=== PATIENT | female | born 1960 | race Caucasian/White ===

== ENCOUNTER 2018-06-03 12:54 | Inpatient (IN) ==
--- NOTE | 2018-06-03 13:08 | Emergency Department Note ---
Disposition Clinical Impression: Femoral neck fracture, Fall Disposition: Admitted As Inpatient Condition: Fair General Adult HPI - General Chief complaint: ED Fall Stated complaint: Fall/ leg pain Time Seen by Provider: 06/03/18 13:00 - Related Data Home Medications Medication Instructions Recorded Confirmed Haloperidol [Haldol] 2 mg PO QAM 06/03/18 06/03/18 Haloperidol [Haldol] 4 mg PO HS 06/03/18 06/03/18 Levothyroxine [Synthroid] 150 mcg PO DAILY 06/03/18 06/03/18 Loratadine [Allergy Relief] 10 mg PO DAILY 06/03/18 06/03/18 OLANZapine [Zyprexa] 20 mg PO HS 06/03/18 06/03/18 Spironolactone [Aldactone] 12.5 mg PO DAILY 06/03/18 06/03/18 Venlafaxine HCl [Venlafaxine HCl 150 mg PO DAILY 06/03/18 06/03/18 ER] Vortioxetine Hydrobromide 15 mg PO QAM 06/03/18 06/03/18 [Trintellix] clonazePAM [Klonopin] 1.5 mg PO HS 06/03/18 06/03/18 Allergies Allergy/AdvReac Type Severity Reaction Status Date / Time No Known Allergies Allergy Verified 06/03/18 14:12 Course Vital Signs Temperature 98.2 F 06/03/18 13:06 Pulse Rate 66 06/03/18 13:06 Respiratory Rate 14 06/03/18 13:06 Blood Pressure 116/76 06/03/18 13:06 O2 Sat by Pulse Oximetry 96 06/03/18 13:06 Temperature 98.5 F 06/03/18 15:40 Pulse Rate 74 06/03/18 15:40 Respiratory Rate 16 06/03/18 15:40 Blood Pressure 133/72 06/03/18 15:40 O2 Sat by Pulse Oximetry 94 06/03/18 15:40 Oxygen Delivery Oxygen Delivery Room Air Medical Decision Making - Lab Data Result diagrams: 06/03/18 14:06 06/03/18 14:06 Lab Results 06/03/18 06/03/18 06/03/18 Range/Units 13:13 14:06 14:06 WBC 5.8 (4.3-11.1) K/mcL RBC 4.06 (3.82-4.97) M/mcL Hgb 12.1 (11.5-15.4) g/dL Hct 37.1 (35.3-44.9) % MCV 91.4 (83.0-100.0) fL MCH 29.8 (28.0-33.3) pg MCHC 32.6 (31.6-35.5) g/dL RDW 15.4 H (11.5-14.5) % Plt Count 139 L (140-400) K/mcL MPV 10.0 (9.4-12.4) fL Immature Gran % 0.5 (0-4) % Seg Neutrophils % 75.7 % Lymphocytes % 14.8 % Monocytes % 7.9 % Eosinophils % 0.9 % Basophils % 0.2 % Neutrophils # 4.4 (1.6-8.9) K/mcL Lymphocytes # 0.9 (0.6-4.6) K/mcL Monocytes # 0.5 (0.0-1.3) K/mcL Eosinophils # 0.1 (0.0-0.6) K/mcL Basophils # 0.0 (0.0-0.2) K/mcL PT (9.4-12.1) Seconds INR Sodium 138 (136-145) mEq/L Potassium 3.9 (3.5-5.1) mEq/L Chloride 104 (98-107) mEq/L Carbon Dioxide 31 H (23-29) mEq/L BUN 10 (6-20) mg/dL Creatinine 0.61 (0.60-1.20) mg/dL Est GFR ( Amer) > 60 (> 60) Est GFR (Non-Af Amer) > 60 (> 60) BUN/Creatinine Ratio 16 (6-26) Glucose 102 (70-105) mg/dL POC Glucose 87 (70-99) mg/dL Calculated Osmolality 285 (280-300) Calcium 9.0 (8.6-10.3) mg/dL 06/03/18 Range/Units 14:06 WBC (4.3-11.1) K/mcL RBC (3.82-4.97) M/mcL Hgb (11.5-15.4) g/dL Hct (35.3-44.9) % MCV (83.0-100.0) fL MCH (28.0-33.3) pg MCHC (31.6-35.5) g/dL RDW (11.5-14.5) % Plt Count (140-400) K/mcL MPV (9.4-12.4) fL Immature Gran % (0-4) % Seg Neutrophils % % Lymphocytes % % Monocytes % % Eosinophils % % Basophils % % Neutrophils # (1.6-8.9) K/mcL Lymphocytes # (0.6-4.6) K/mcL Monocytes # (0.0-1.3) K/mcL Eosinophils # (0.0-0.6) K/mcL Basophils # (0.0-0.2) K/mcL PT 12.1 (9.4-12.1) Seconds INR 1.1 Sodium (136-145) mEq/L Potassium (3.5-5.1) mEq/L Chloride (98-107) mEq/L Carbon Dioxide (23-29) mEq/L BUN (6-20) mg/dL Creatinine (0.60-1.20) mg/dL Est GFR ( Amer) (> 60) Est GFR (Non-Af Amer) (> 60) BUN/Creatinine Ratio (6-26) Glucose (70-105) mg/dL POC Glucose (70-99) mg/dL Calculated Osmolality (280-300) Calcium (8.6-10.3) mg/dL Attestation Statement - Attestation Attestation: I examined this patient and my medical decision-making was reviewed with the Resident Physician. I agree with the documented findings, disposition and treatment plan as described except to the extent set forth below. [id number] time provided Patient arrives by EMS from the [facility] where she was visiting her . She sustained a fall. She recalls all events. She denies head or neck injury. She complains of right proximal femur pain. She denies focal weakness. On exam she has somewhat of a flat affect she is able to move all 4 extremities with equal strength
[2018-06-03 14:30] LABS: Basophils % 0.2 %; Eosinophils # 0.1 K/mcL (0.0-0.6); Eosinophils % 0.9 %; Hematocrit 37.1 % (35.3-44.9); Hemoglobin 12.1 g/dL (11.5-15.4); Immature Granulocytes % 0.5 % (0-4); Lymphocytes # 0.9 K/mcL (0.6-4.6); Lymphocytes % 14.8 %; Mean Corpuscular HGB Conc 32.6 g/dL (31.6-35.5); Mean Corpuscular Hemoglobin 29.8 pg (28.0-33.3); Mean Corpuscular Volume 91.4 fL (83.0-100.0); Monocytes # 0.5 K/mcL (0.0-1.3); Monocytes % 7.9 %; Neutrophils # 4.4 K/mcL (1.6-8.9); Platelet Count 139 K/mcL (140-400); Red Blood Count 4.06 M/mcL (3.82-4.97); Red Cell Distribution Width 15.4 % (11.5-14.5); Segmented Neutrophils % 75.7 %
[2018-06-03 14:38] LABS: INR 1.1; Prothrombin Time 12.1 Seconds (9.4-12.1)
[2018-06-03 14:41] LABS: BUN/Creatinine Ratio 16 (6-26); Blood Urea Nitrogen 10 mg/dL (6-20); Carbon Dioxide 31 mEq/L (23-29); Chloride 104 mEq/L (98-107); Glucose 102 mg/dL (70-105); Osmolality,Calculated 285 (280-300); Potassium 3.9 mEq/L (3.5-5.1); Sodium 138 mEq/L (136-145); eGFR For Non-African Americans > 60 (> 60)
--- NOTE | 2018-06-03 14:43 | Emergency Department Note ---
Disposition Clinical Impression: Femoral neck fracture Qualifiers: Encounter type: initial encounter Fracture type: closed Laterality: right Qualified Code(s): S72.001A - Fracture of unspecified part of neck of right femur, initial encounter for closed fracture Fall Qualifiers: Encounter type: initial encounter Qualified Code(s): W19.XXXA - Unspecified fall, initial encounter Disposition: Admitted As Inpatient Condition: Fair General Adult HPI - General Chief complaint: ED Fall Stated complaint: Fall/ leg pain Time Seen by Provider: 06/03/18 13:00 Source: patient Nursing Notes Reviewed: Yes Vital Signs Reviewed: Yes - History of Present Illness HPI Narrative: 57-year-old female presents to emergency department with concern for fall. Patient is complaining of right hip pain and right knee pain after a fall. On any blood thinning medications. Patient is at her current baseline mental status per her . They are concerned that patient is on multiple medications which have brought that her affect. Patient reports that the fall was mechanical. Pain Scale: 8 - Related Data Home Medications Medication Instructions Recorded Confirmed Haloperidol [Haldol] 2 mg PO QAM 06/03/18 06/03/18 Haloperidol [Haldol] 4 mg PO HS 06/03/18 06/03/18 Levothyroxine [Synthroid] 150 mcg PO DAILY 06/03/18 06/03/18 Loratadine [Allergy Relief] 10 mg PO DAILY 06/03/18 06/03/18 OLANZapine [Zyprexa] 20 mg PO HS 06/03/18 06/03/18 Spironolactone [Aldactone] 12.5 mg PO DAILY 06/03/18 06/03/18 Venlafaxine HCl [Venlafaxine HCl 150 mg PO DAILY 06/03/18 06/03/18 ER] Vortioxetine Hydrobromide 15 mg PO QAM 06/03/18 06/03/18 [Trintellix] clonazePAM [Klonopin] 1.5 mg PO HS 06/03/18 06/03/18 Allergies Allergy/AdvReac Type Severity Reaction Status Date / Time No Known Allergies Allergy Verified 06/03/18 14:12 All systems ED: reviewed and negative except as stated. Review of Systems: As Per HPI Constitutional: Denies: fever Cardiovascular: Denies: chest pain Respiratory: Denies: dyspnea Gastrointestinal: Denies: abdominal pain Genitourinary: Reports: frequency. Denies: urgency, dysuria Musculoskeletal: Reports: other (Right hip pain, right knee pain). Denies: back pain Neurological: Denies: headache Past Medical History - Past Medical History Medical history: Reports: no medical history Psychiatric history: Reports: anxiety, depression - Social History Smoking Status: Former smoker Alcohol use: Reports: none Drug use: Reports: none Physical Exam - General General appearance: alert - Head Head exam: normocephalic - Eye Eye exam: Present: EOMI - ENT ENT exam: mucous membranes moist - Neck Neck exam: Present: trachea midline - Chest Chest inspection: Present: symmetric chest wall rise - Respiratory Respiratory exam: Present: normal lung sounds bilaterally. Absent: respiratory distress, accessory muscle use - Cardiovascular Cardiovascular exam: Present: regular rate, normal rhythm, normal heart sounds - Abdominal Exam Abdominal exam: Present: soft, Non-Tender. Absent: distention, guarding, rebound, rigidity - Extremities Exam Extremities exam: Present: normal capillary refill, other (Upper and lower extremity is neurovascular intact) - Expanded Lower Extremity Exam Hip/Pelvis exam: Present: tenderness (Right hip upon palpation) Knee exam: Present: tenderness (The right knee upon palpation) Course Vital Signs Temperature 98.2 F 06/03/18 13:06 Pulse Rate 66 06/03/18 13:06 Respiratory Rate 14 06/03/18 13:06 Blood Pressure 116/76 06/03/18 13:06 O2 Sat by Pulse Oximetry 96 06/03/18 13:06 Temperature 98.5 F 06/03/18 15:40 Pulse Rate 74 06/03/18 15:40 Respiratory Rate 16 06/03/18 15:40 Blood Pressure 133/72 06/03/18 15:40 O2 Sat by Pulse Oximetry 94 06/03/18 15:40 Oxygen Delivery Oxygen Delivery Room Air Medical Decision Making - [facility] Narrative Medical decision making narrative: 57-year-old female presents to emergency department after a mechanical fall. Patient complaining of right hip pain as well as right knee pain. Patient not in any acute distress, and hemodynamically stable throughout her stay here in the emergency department. X-ray of the right hip reveals a right femoral neck fracture that is mildly displaced. Right lower extremity neurovascularly intact. I did speak with an cafeteria assistant of Dr. Christianson'gold as he was in surgery. He did agree to follow patient on the floor for management. Hospitalist, Dr. Lugo agree to accept the patient for admission. I discussed admission with family at bedside. They agree to plan. Patient not in acute distress at time of a dmission to the hospital. Labs that were obtained for Hospital purposes within normal limits. Femur X-Ray 06/03/18 13:06 IMPRESSION: 1. Acute right femoral neck fracture. D/ / Ricky Monsivais MD / Ricky Monsivais MD Interpreting Provider: Ricky Monsivais MD Pelvis X-Ray 06/03/18 13:06 IMPRESSION: 1. Acute right femoral neck fracture. D/ / Ricky Monsivais MD / Ricky Monsivais MD Interpreting Provider: Ricky Monsivais MD Chest X-Ray 06/03/18 14:07 IMPRESSION: Small pleural effusions and moderate ground-glass opacities centrally. Pattern may represent pulmonary edema. A viral infection may also be considered clinically. D/ / Ricky Gutierrez MD / Ricky Gutierrez MD Interpreting Provider: Ricky Gutierrez MD Hip CT 06/03/18 16:00 IMPRESSION: 1. Limited CT Molina protocol of the bilateral hips and knees for preoperative planning. 2. Redemonstration of transcervical right femoral neck fracture with fracture apex angulated anteriorly. 3. Mild osteoarthritis of the bilateral hips. 4. Bilateral total knee arthroplasties. D/ / Jorge Garcia MD / Jorge Garcia MD Interpreting Provider: Jorge Garcia MD - Lab Data Result diagrams: 06/03/18 14:06 06/03/18 14:06 Lab Results 06/03/18 06/03/18 06/03/18 Range/Units 13:13 14:06 14:06 WBC 5.8 (4.3-11.1) K/mcL RBC 4.06 (3.82-4.97) M/mcL Hgb 12.1 (11.5-15.4) g/dL Hct 37.1 (35.3-44.9) % MCV 91.4 (83.0-100.0) fL MCH 29.8 (28.0-33.3) pg MCHC 32.6 (31.6-35.5) g/dL RDW 15.4 H (11.5-14.5) % Plt Count 139 L (140-400) K/mcL MPV 10.0 (9.4-12.4) fL Immature Gran % 0.5 (0-4) % Seg Neutrophils % 75.7 % Lymphocytes % 14.8 % Monocytes % 7.9 % Eosinophils % 0.9 % Basophils % 0.2 % Neutrophils # 4.4 (1.6-8.9) K/mcL Lymphocytes # 0.9 (0.6-4.6) K/mcL Monocytes # 0.5 (0.0-1.3) K/mcL Eosinophils # 0.1 (0.0-0.6) K/mcL Basophils # 0.0 (0.0-0.2) K/mcL PT (9.4-12.1) Seconds INR Sodium 138 (136-145) mEq/L Potassium 3.9 (3.5-5.1) mEq/L Chloride 104 (98-107) mEq/L Carbon Dioxide 31 H (23-29) mEq/L BUN 10 (6-20) mg/dL Creatinine 0.61 (0.60-1.20) mg/dL Est GFR ( Amer) > 60 (> 60) Est GFR (Non-Af Amer) > 60 (> 60) BUN/Creatinine Ratio 16 (6-26) Glucose 102 (70-105) mg/dL POC Glucose 87 (70-99) mg/dL Calculated Osmolality 285 (280-300) Calcium 9.0 (8.6-10.3) mg/dL 06/03/18 Range/Units 14:06 WBC (4.3-11.1) K/mcL RBC (3.82-4.97) M/mcL Hgb (11.5-15.4) g/dL Hct (35.3-44.9) % MCV (83.0-100.0) fL MCH (28.0-33.3) pg MCHC (31.6-35.5) g/dL RDW (11.5-14.5) % Plt Count (140-400) K/mcL MPV (9.4-12.4) fL Immature Gran % (0-4) % Seg Neutrophils % % Lymphocytes % % Monocytes % % Eosinophils % % Basophils % % Neutrophils # (1.6-8.9) K/mcL Lymphocytes # (0.6-4.6) K/mcL Monocytes # (0.0-1.3) K/mcL Eosinophils # (0.0-0.6) K/mcL Basophils # (0.0-0.2) K/mcL PT 12.1 (9.4-12.1) Seconds INR 1.1 Sodium (136-145) mEq/L Potassium (3.5-5.1) mEq/L Chloride (98-107) mEq/L Carbon Dioxide (23-29) mEq/L BUN (6-20) mg/dL Creatinine (0.60-1.20) mg/dL Est GFR ( Amer) (> 60) Est GFR (Non-Af Amer) (> 60) BUN/Creatinine Ratio (6-26) Glucose (70-105) mg/dL POC Glucose (70-99) mg/dL Calculated Osmolality (280-300) Calcium (8.6-10.3) mg/dL
--- NOTE | 2018-06-03 16:03 | Orthopedic Consult Note ---
Date of Encounter: 06/04/18 Time of Encounter: 16:02 Assessment and Plan (1) Femoral neck fracture Current Visit: Yes Status: Acute Plan: Right Hip THR 06/[address]Cohen Atif [address]e [address] tonight NPO after midnight. Foot pumps Pain control CHG bath tonight and in AM Consent reviewed and signed by patient. Qualifiers: Encounter type: initial encounter Fracture type: closed Laterality: right Qualified Code(s): S72.001A - Fracture of unspecified part of neck of right femur, initial encounter for closed fracture (2) Fall Current Visit: Yes Status: Acute Qualifiers: Encounter type: initial encounter Qualified Code(s): W19.XXXA - Unspecified fall, initial encounter History of Present Illness Chief complaint: fall HPI: Ms. Acosta is a 57 year old female past medical history of bipolar depression, hypothyroidism, obesity status post gastric bypass one year ago came in after a fall with right leg pain. Patient lives at home independently, she was at the [place] with her , was sitting in the chair, and when she stood up and walk a few steps, she fell. Denies any dizziness or palpitation blackout or lightheadedness before the fall. Mentions that she just tripped and fall. Did not have any history of falls in past. Per was at bedside her blood pressure was low at that time in 80s which later on in the ambulance was higher. She did not lose any consciousness or hit her head or neck. She complains of pain in her right thigh. Denies any other pain. Denies any chest pain, shortness of breath, cough, fever or chills. Denies any urinary or bowel complaints. Patient was found to have impacted right femur Fracture in ER. She was admitted for further management. On interview complains about 8/10 intensity pain. Denies any nausea or vomiting. Denies any tingling numbness in her foot. RLE: Sw[place], no eccymosis or erythema. No obvious abrasion Calf tenderness - none Leg appears ER and shortened NV intact distally. Plan: Right Hip THR 06/[address]Cohen [address]if [address]e [address] tonight NPO after midnight. Foot pumps Pain control CHG bath tonight and in AM Consent reviewed and signed by patient. Past Med Surg Social Fam HX - Past Medical History Medical history: no medical history Psychiatric history: anxiety, depression - Past Surgical History Additional surgical history: Gastro at beginning of year - Social History Smoking Status: Former smoker Alcohol use: none Drug use: none - Family History Father Hx Family Cancer: Yes (LUNG) Mother Hx Family Cardiac Disorders: Yes (HTN) Medications and Allergies Haloperidol [Haldol] 2 mg PO QAM 06/03/18 [History] Haloperidol [Haldol] 4 mg PO HS 06/03/18 [History] Levothyroxine [Synthroid] 150 mcg PO DAILY 06/03/18 [History] Loratadine [Allergy Relief] 10 mg PO DAILY 06/03/18 [History] OLANZapine [Zyprexa] 20 mg PO HS 06/03/18 [History] Spironolactone [Aldactone] 12.5 mg PO DAILY 06/03/18 [History] Venlafaxine HCl [Venlafaxine HCl ER] 150 mg PO DAILY 06/03/18 [History] Vortioxetine Hydrobromide [Trintellix] 15 mg PO QAM 06/03/18 [History] clonazePAM [Klonopin] 1.5 mg PO HS 06/03/18 [History] Allergy/AdvReac Type Severity Reaction Status Date / Time No Known Allergies Allergy Verified 06/03/18 14:12 All Systems Reviewed: The remainder of the systems were reviewed and are negative Physical Exam - Constitutional Vitals: Temp Pulse Resp BP Pulse Ox 98.5 F 74 16 133/72 94 06/03/18 15:40 06/03/18 15:40 06/03/18 15:40 06/03/18 15:40 06/03/18 15:40 General appearance IM: A&O X 3, no acute distress, answers questions appropriately Results - Labs Result Diagrams: 06/04/18 06:07 06/04/18 06:07 Labs: Abnormal lab results RDW 15.4 % (11.5-14.5) H 06/03/18 14:06 Plt Count 139 K/mcL (140-400) L 06/03/18 14:06 Carbon Dioxide 31 mEq/L (23-29) H 06/03/18 14:06 H & H 06/03/18 Range/Units 14:06 Hgb 12.1 (11.5-15.4) g/dL Hct 37.1 (35.3-44.9) % All other labs normal. Consult Discharge Plan - Plan Referrals: Paty Haskins [Primary Care Provider] -
[2018-06-03] MEDS ORDERED: Naloxone 0.4 MG/ML INJ IVP PRN (16:14)
--- NOTE | 2018-06-03 16:23 | Internal Med History&Physical ---
Date of Encounter: 06/03/18 Time of Encounter: 16:23 Internal Medicine - H&P: HPI Chief complaint: fall Admitted From: Home Plans for Post Hospital Care: Home History of present illness: Ms. Acosta is a 57 year old female with past medical history of bipolar depression, hypothyroidism, obesity status post gastric bypass one year ago came in after a fall with right leg pain. Patient was sitting in the chair for about a 1 hour after which she stood up and walk a few steps and fell. Denies any dizziness or palpitation blackout or lightheadedness before the fall. Mentions that she just tripped and fall. Did not have any history of falls in past. Per was at bedside her blood pressure was low at that time in 80s which later on in the ambulance was higher. She did not lose any consciousness or hit her head or neck. She complains of pain in her right thigh. Denies any other pain. Denies any chest pain, shortness of breath, cough, fever or chills. Denies any urinary or bowel complaints. Patient was found to have impacted right femur Fracture in ER. She was admitted for further management. On interview complains about 8/10 intensity pain. Denies any nausea or vomiting. Denies any tingling numbness in her foot. Past Med Surg Social Fam HX - Past Medical History Attestation: Yes The following information was validated with the patient. Medical history: no medical history Psychiatric history: anxiety, depression - Past Surgical History Additional surgical history: Gastric bypass about a year ago. Bilateral knee arthroplasty. Spinal stimulator for ankle pain - Social History Smoking Status: Former smoker Alcohol use: none Drug use: none - Family History Father Living Status: Age at : 46 Hx Family Respiratory Disorders: Yes (lung cancer) Mother Hx Family Cardiac Disorders: Yes (HTN) Internal Medicine - H&P: Meds Haloperidol [Haldol] 2 mg PO QAM 06/03/18 [History] Haloperidol [Haldol] 4 mg PO HS 06/03/18 [History] Levothyroxine [Synthroid] 150 mcg PO DAILY 06/03/18 [History] Loratadine [Allergy Relief] 10 mg PO DAILY 06/03/18 [History] OLANZapine [Zyprexa] 20 mg PO HS 06/03/18 [History] Spironolactone [Aldactone] 12.5 mg PO DAILY 06/03/18 [History] Venlafaxine HCl [Venlafaxine HCl ER] 150 mg PO DAILY 06/03/18 [History] Vortioxetine Hydrobromide [Trintellix] 15 mg PO QAM 06/03/18 [History] clonazePAM [Klonopin] 1.5 mg PO HS 06/03/18 [History] Allergy/AdvReac Type Severity Reaction Status Date / Time No Known Allergies Allergy Verified 06/03/18 14:12 All Systems PM: A 10-system review of systems was performed and is negative for pertinent findings except as documented above in the HPI. - Constitutional Vitals: Temp Pulse Resp BP Pulse Ox 98.5 F 74 16 133/72 94 06/03/18 15:40 06/03/18 15:40 06/03/18 15:40 06/03/18 15:40 06/03/18 15:40 Exam: Constitutional: Vitals as noted. Conversant. No Apparent Distress. Flat affect Eyes : Sclera white, conjunctiva clear, no lid lag, PEARLA. ENT : Grossly normal hearing. Oropharyngeal exam unremarkable. Moist mucus membranes. No JVD, no cervical lymphadenopathy. no thyromegaly or mass. Respiratory : Clear to auscultation bilaterally. No accessory muscle use, rales, rhonchi or wheezes Cardiovascular : RRR, +S1, +S2. no murmur, gallop, rubs. No chest wall tenderness GI/Abdominal : Soft, Non-tender, Non-distended, normal bowel sounds, soft, no peritoneal signs. no orgenomegaly or mass appreciated. no hernia. Musculoskeletal: no deformity noted. no edema or cyanosis. warm extremities, pulses palpable and symmetrical in UE/LE. no calf tenderness. Rt thigh with petchei on front, pain with Rt leg movement. No obvious deformity noted. Neurological: AO X3, CN II-XII grossly intact, grossly normal motor and sensory exam. Skin: As above Pych: Flat affect. Internal Med - H&P Results - Labs CBC & Chem 7: 06/03/18 14:06 06/03/18 14:06 Labs: Short CBC 06/03/18 Range/Units 14:06 WBC 5.8 (4.3-11.1) K/mcL Hgb 12.1 (11.5-15.4) g/dL Hct 37.1 (35.3-44.9) % Plt Count 139 L (140-400) K/mcL Neutrophils # 4.4 (1.6-8.9) K/mcL BMP 06/03/18 14:06 Sodium 138 Potassium 3.9 Chloride 104 Carbon Dioxide 31 H BUN 10 Creatinine 0.61 Glucose 102 Calcium 9.0 - EKG Data -: EKG Interpreted by Myself EKG shows normal: sinus rhythm, axis Rate: normal - EKG Data Interpretation IM: normal EKG - Impressions ITS Impressions Femur X-Ray 06/03/18 13:06 IMPRESSION: 1. Acute right femoral neck fracture. D/ / Ricky Monsivais MD / Ricky Monsivais MD Interpreting Provider: Ricky Monsivais MD Pelvis X-Ray 06/03/18 13:06 IMPRESSION: 1. Acute right femoral neck fracture. D/ / Ricky Monsivais MD / Ricky Monsivais MD Interpreting Provider: Ricky Monsivais MD Chest X-Ray 06/03/18 14:07 IMPRESSION: Small pleural effusions and moderate ground-glass opacities centrally. Pattern may represent pulmonary edema. A viral infection may also be considered clinically. D/ / Ricky Gutierrez MD / Ricky Gutierrez MD Interpreting Provider: Ricky Gutierrez MD - Assessment and plan (1) Femoral neck fracture Current Visit: Yes Status: Acute Assessment and plan: - Right femur Fracture after mechanical fall - We will control pain with Percocet 5 every 6 when necessary. We will use IV Dilaudid when nothing by mouth. - Nothing by mouth after midnight for surgical intervention - Ortho consulted - We will obtain vitamin D and TSH levels given patient had fracture with non- significant trauma. Qualifiers: Encounter type: initial encounter Fracture type: closed Laterality: right Qualified Code(s): S72.001A - Fracture of unspecified part of neck of right femur, initial encounter for closed fracture (2) Bipolar disorder Current Visit: Yes Status: Chronic Assessment and plan: - Continue home medication Qualifiers: Qualified Code(s): F31.9 - Bipolar disorder, unspecified (3) Hypothyroidism Current Visit: Yes Status: Acute Assessment and plan: - Continue home levothyroxine - Obtain TSH. Qualifiers: Qualified Code(s): E03.9 - Hypothyroidism, unspecified (4) Fall Current Visit: Yes Status: Acute Assessment and plan: - Appears to have mechanical fall - However unclear patient otherwise and spironolactone. - No cardiac or pulmonary history. - We will keep patient on telemetry for arrhythmia events Qualifiers: Encounter type: initial encounter Qualified Code(s): W19.XXXA - Unspecified fall, initial encounter (5) Preoperative cardiovascular examination Current Visit: Yes Status: Acute Assessment and plan: - Patient with our RCRI score of 0-1 with low risk for intermediate risk surgery. - Patient without chest pain. EKG without any signs of ischemia. Normal sinus rhythm with 1 PVC. - Chest x-ray with groundglass opacities. However clinically the patient does not have any fluid overload. Denies any cough or shortness of breath or h/o PND - We will obtain echocardiogram. However it should not prevent patient to go to surgery tomorrow. - Time Spent With Patient Total time spent is greater than 50% in coordination of care (as documented) at patient's floor/unit and/or counseling patient:
[2018-06-03] MEDS ORDERED: Ringers Solution, Lactated 1,000 ML ONE (17:12)
[2018-06-03] MEDS: *HR* OxyCODONE/APAP 5/325 TABLET PO PRN (17:16)
[2018-06-03] MEDS: Ringers Solution, Lactated 1,000 ML IVC SCH (18:12)
[2018-06-03] MEDS ORDERED: OLANZapine 10 MG TAB.RAPDIS PO SCH (21:00)
[2018-06-03] MEDS ORDERED: clonazePAM 1 MG TABLET PO SCH (21:00)
[2018-06-04] MEDS: *HR* Heparin 5,000 UNIT/ML VIAL SQ SCH ×3 (01:03→23:36)
[2018-06-04] MEDS: *HR* OxyCODONE/APAP 5/325 TABLET PO PRN (01:04)
--- NOTE | 2018-06-04 06:02 | Electrocardiograph Report ---
[place] [facility] Test Date: 2018-06-03 Pat Name: Leticia Acosta Department: EXAM5 Room: [facility] Gender: F Daub [employer]er: : [id number] Requested By: Isaias Pham Order Number: [id number] Reading MD: Gomez Cisneros Measurements Intervals Mentcle Rate: 61 P: 33 [place]: 154 QRS: 40 QRSD: 86 T: 54 QT: 425 QTc: 429 Interpretive Statements Sinus rhythm Electronically Signed On 06-04-2018 6:01:07 EST by Gomez Cisneros
[2018-06-04 06:27] LABS: Basophils % 0.2 %; Eosinophils % 0.5 %; Hematocrit 39.4 % (35.3-44.9); Hemoglobin 12.7 g/dL (11.5-15.4); Immature Granulocytes % 0.5 % (0-4); Mean Corpuscular HGB Conc 32.2 g/dL (31.6-35.5); Mean Corpuscular Volume 92.9 fL (83.0-100.0); Monocytes # 0.5 K/mcL (0.0-1.3); Monocytes % 8.1 %; Neutrophils # 4.8 K/mcL (1.6-8.9); Platelet Count 127 K/mcL (140-400); Red Blood Count 4.24 M/mcL (3.82-4.97); Red Cell Distribution Width 15.8 % (11.5-14.5); Segmented Neutrophils % 74.7 %
[2018-06-04 06:44] LABS: Alanine Aminotransferase 58 Units/L (7-52); Albumin 3.2 g/dL (3.5-5.7); Albumin/Globulin Ratio 0.9 (1.1-2.2); Alkaline Phosphatase 176 Units/L (34-104); Aspartate Amino Transferase 51 Units/L (13-39); BUN/Creatinine Ratio 16 (6-26); Bilirubin,Total 0.8 mg/dL (0.3-1.0); Blood Urea Nitrogen 10 mg/dL (6-20); Calcium 9.1 mg/dL (8.6-10.3); Carbon Dioxide 29 mEq/L (23-29); Chloride 106 mEq/L (98-107); Globulin 3.5 g/dL (2.4-3.5); Glucose 117 mg/dL (70-105); Osmolality,Calculated 290 (280-300); Potassium 4.1 mEq/L (3.5-5.1); Sodium 140 mEq/L (136-145); Total Protein 6.7 g/dL (6.4-8.9); eGFR For Non-African Americans > 60 (> 60)
[2018-06-04 06:57] LABS: Thyroid Stimulating Hormone 7.354 mcIU/mL (0.340-5.600)
[2018-06-04] MEDS: Ringers Solution, Lactated 1,000 ML IVC SCH (07:30)
[2018-06-04] MEDS ORDERED: Venlafaxine XR (24 HR) 150 MG CAP.ER.24H PO SCH (09:00)
[2018-06-04] MEDS ORDERED: VORTIOXETINE HYDROBROMIDE 15 MG PO SCH (09:00)
[2018-06-04] MEDS ORDERED: Loratadine 10 MG TABLET PO SCH (09:00)
--- NOTE | 2018-06-04 09:01 | Internal Med Progress Note ---
Hospitalist Progress Note - Encounter Date of Encounter: 06/04/18 Time of Encounter: 09:01 - Subjective Interval History: Patient seen and examined this morning. No acute overnight events. Denies new complaints. Right leg pain control. Denies any chest pain, abdominal pain, fevers, chills, nausea, vomiting, diarrhea. NPO. - Exam Vitals: Temp Pulse Resp BP Pulse Ox 98.4 F 86 16 114/76 95 06/04/18 06:34 06/04/18 06:34 06/04/18 06:34 06/04/18 06:34 06/04/18 06:34 Exam: Constitutional: Vitals as noted. Conversant. No Apparent Distress. Respiratory : Clear to auscultation bilaterally. No accessory muscle use, rales, rhonchi or wheezes Cardiovascular : RRR, +S1, +S2. no murmur, gallop, rubs. No chest wall tender ness GI/Abdominal : Soft, Non-tender, Non-distended, normal bowel sounds, soft, no peritoneal signs. no orgenomegaly or mass appreciated. no hernia. Musculoskeletal: no deformity noted. no edema or cyanosis. warm extremities, pulses palpable and symmetrical in UE/LE. no calf tenderness. pain with Rt leg movement. Neurological: AO X3, CN II-XII grossly intact, grossly normal motor and sensory exam. Skin: As above Pych: Flat affect. - Assessment and Plan (1) Femoral neck fracture Current Visit: Yes Status: Acute (2) Bipolar disorder Current Visit: Yes Status: Chronic (3) Hypothyroidism Current Visit: Yes Status: Acute (4) Fall Current Visit: Yes Status: Acute (5) Preoperative cardiovascular examination Current Visit: Yes Status: Acute - Summary of Assessment and Plan Summary of Assessment and Plan: Femoral neck fracture - Right femur Fracture after mechanical fall - continue current pain regimen - NPO for surgical intervention later today - Ortho following - TSH elevated. Follow-up vitamin D levels Elevated transaminase and alkaline phosphatase - Minimally elevated transaminase. - Elevated alkaline phosphatase likely from bone source - Without abdominal pain. - No further intervention needed - Monitor for now Thrombocytopenia - Minimally decreased - Monitor for now Bipolar disorder - Continue home medication Hypothyroidism - Elevated TSH which may suggest patient is not well controlled for hypoth yroidism. - Continue home levothyroxine - Will need adjustment of her oxygen dosage as outpatient Fall - Appears to have mechanical fall - No cardiac or pulmonary history. - No telemetry events - Follow-up TTE Preoperative cardiovascular examination - RCRI of 0(1 if CXR suggest CHF). Low risk for intermediate risk surgery. - Patient without chest pain. EKG without any signs of ischemia. Normal sinus rhythm with 1 PVC. - Chest x-ray with groundglass opacities. However clinically the patient does not have any fluid overload. Denies any cough or shortness of breath or h/o PND - Follow-up TTE - Time Spent with Patient Total time spent is greater than 50% in coordination of care (as documented) at patient's floor/unit and/or counseling patient: Internal Medicine: Result - Labs CBC & Chem 7: 06/04/18 06:07 06/04/18 06:07 Labs: Short CBC 06/03/18 06/04/18 Range/Units 14:06 06:07 WBC 5.8 6.4 (4.3-11.1) K/mcL Hgb 12.1 12.7 (11.5-15.4) g/dL Hct 37.1 39.4 (35.3-44.9) % Plt Count 139 L 127 L (140-400) K/mcL Neutrophils # 4.4 4.8 (1.6-8.9) K/mcL BMP 06/03/18 06/04/18 14:06 06:07 Sodium 138 140 Potassium 3.9 4.1 Chloride 104 106 Carbon Dioxide 31 H 29 BUN 10 10 Creatinine 0.61 0.61 Glucose 102 117 H Calcium 9.0 9.1 Liver Function 06/04/18 Range/Units 06:07 Total Bilirubin 0.8 (0.3-1.0) mg/dL AST 51 H (13-39) Units/L ALT 58 H (7-52) Units/L Alkaline Phosphatase 176 H (34-104) Units/L Albumin 3.2 L (3.5-5.7) g/dL - ABG Interpretation ABG results: PT/INR, D-dimer PT 12.1 Seconds (9.4-12.1) 06/03/18 14:06 - Impressions Impressions Femur X-Ray 06/03/18 13:06 IMPRESSION: 1. Acute right femoral neck fracture. D/ / Ricky Monsivais MD / Ricky Monsivais MD Interpreting Provider: Ricky Monsivais MD Pelvis X-Ray 06/03/18 13:06 IMPRESSION: 1. Acute right femoral neck fracture. D/ / Ricky Monsivais MD / Ricky Monsivais MD Interpreting Provider: Ricky Monsivais MD Chest X-Ray 06/03/18 14:07 IMPRESSION: Small pleural effusions and moderate ground-glass opacities centrally. Pattern may represent pulmonary edema. A viral infection may also be considered clinically. D/ / Ricky Gutierrez MD / Ricky Gutierrez MD Interpreting Provider: Ricky Gutierrez MD Hip CT 06/03/18 16:00 IMPRESSION: 1. Limited CT Molina protocol of the bilateral hips and knees for preoperative planning. 2. Redemonstration of transcervical right femoral neck fracture with fracture apex angulated anteriorly. 3. Mild osteoarthritis of the bilateral hips. 4. Bilateral total knee arthroplasties. D/ / Jorge Garcia MD / Jorge Garcia MD Interpreting Provider: Jorge Garcia MD Consult Discharge Plan - Plan Referrals: Paty Haskins [Primary Care Provider] - (1) Femoral neck fracture Qualifiers: Encounter type: initial encounter Fracture type: closed Laterality: right Qualified Code(s): S72.001A - Fracture of unspecified part of neck of right femur, initial encounter for closed fracture (2) Bipolar disorder Qualifiers: Qualified Code(s): F31.9 - Bipolar disorder, unspecified (3) Hypothyroidism Qualifiers: Qualified Code(s): E03.9 - Hypothyroidism, unspecified (4) Fall Qualifiers: Encounter type: initial encounter Qualified Code(s): W19.XXXA - Unspecified fall, initial encounter
--- NOTE | 2018-06-04 09:34 | Orthopedics Progress Note ---
Date of Encounter: 06/04/18 Time of Encounter: 09:33 Subjective Interval history: Patient with a displaced right femoral neck fracture. Patient is 57 years old. Patient recently status post press-fit total knee on the right side. Based on patient's age diagnosis recommendations for robotic-assisted right total hip replacement. We reviewed the risks and benefits as well as recovery. All questions were answered. The patient agreed to this treatment plan and acknowledged an understanding of the treatment plan as described. Objective Vital signs: Vital Signs Temp Pulse Resp BP Pulse Ox 06/04/18 06:34 98.4 F 86 16 114/76 95 06/04/18 04:56 98.4 F 88 15 111/74 93 06/03/18 23:31 98.6 F 80 15 131/82 94 06/03/18 21:02 98.3 F 85 15 113/72 93 06/03/18 15:40 98.5 F 74 16 133/72 94 06/03/18 15:23 93 06/03/18 14:35 98.6 F 64 17 104/66 97 06/03/18 13:06 98.2 F 66 14 116/76 96 Intake and Output 06/03/18 06/04/18 06/04/18 23:59 07:59 15:59 Intake Total 200 / 200 1000 / 1000 Output Total 1000 / 1000 Balance 200 / 200 0 / 0 Intake: IV Fluids 1000 / 1000 Lactated Ringers 1,000 ML @ 75 1000 / 1000 mls/hr IVC .[id number] Rx#: [id number] Oral 200 / 200 Output: Catheter 1000 / 1000 Female External Catheter 0 / 0 Urethral (Rahman) 1000 / 1000 Other: Meal Dinner Percent of Meal Consumed 100% Weight 74.1 kg Patient Weight 06/04/18 23:59 Weight 74.1 kg - Labs CBC & BMP: 06/04/18 06:07 06/04/18 06:07 Labs: Abnormal lab results RDW 15.8 % (11.5-14.5) H 06/04/18 06:07 Plt Count 127 K/mcL (140-400) L 06/04/18 06:07 Glucose 117 mg/dL (70-105) H 06/04/18 06:07 AST 51 Units/L (13-39) H 06/04/18 06:07 ALT 58 Units/L (7-52) H 06/04/18 06:07 Alkaline Phosphatase 176 Units/L (34-104) H 06/04/18 06:07 Albumin 3.2 g/dL (3.5-5.7) L 06/04/18 06:07 Albumin/Globulin Ratio 0.9 (1.1-2.2) L 06/04/18 06:07 TSH 7.354 mcIU/mL (0.340-5.600) H 06/04/18 06:07 Consult Discharge Plan - Plan Referrals: Paty Haskins [Primary Care Provider] -
[2018-06-04] MEDS ORDERED: Perflutren Lipid Microsphere 1.3 ML in 0.9 % Sodium Chloride 8.7 ML IVP ONE (09:54)
[2018-06-04] MEDS ORDERED: Perflutren Lipid Microsphere 2 ML VIAL ONE (09:57)
--- NOTE | 2018-06-04 11:03 | Electrocardiograph Report ---
[address] [address] Test Date: 2018-06-03 Pat Name: Leticia Acosta Department: 114 Room: [facility] Gender: F [place] Counselor: [id number] : 1960 Requested By: Kaleb Molina Order Number: [id number] Reading MD: Nicki Hsu Measurements Intervals [place] Rate: 87 P: 40 UT: 151 QRS: 28 QRSD: 91 T: 33 QT: 360 QTc: 404 Interpretive Statements SINUS RHYTHM WITH MARKED SINUS ARRHYTHMIA NONSPECIFIC T-WAVE ABNORMALITY Electronically Signed On 06-04-2018 11:01:10 EST by Nicki Hsu
--- NOTE | 2018-06-04 13:39 | Anesthesia Evaluation PreOp ---
Date of Encounter: 06/04/18 Time of Encounter: 13:37 - Past History Planned Operation: Right robo total hip Cardiac History: Denies any Significant Hx Pulmonary History: Denies Any Significant HX HEALTH DATA ADMINISTRATOR History: Other (bipolar depression) Other Medical History: Thyroid (hypo), GERD, Other (right femur fracture, spinal stimulator for ankle pain) Anesthesia History: No Prior Anesthetic Complications, Past Anesthesia (bilateral total knee) : No Alcohol Use: none Drug use: none Medications and Allergies Haloperidol [Haldol] 2 mg PO QAM 06/03/18 [History] Haloperidol [Haldol] 4 mg PO HS 06/03/18 [History] Levothyroxine [Synthroid] 150 mcg PO DAILY 06/03/18 [History] Loratadine [Allergy Relief] 10 mg PO DAILY 06/03/18 [History] OLANZapine [Zyprexa] 20 mg PO HS 06/03/18 [History] Spironolactone [Aldactone] 12.5 mg PO DAILY 06/03/18 [History] Venlafaxine HCl [Venlafaxine HCl ER] 150 mg PO DAILY 06/03/18 [History] Vortioxetine Hydrobromide [Trintellix] 15 mg PO QAM 06/03/18 [History] clonazePAM [Klonopin] 1.5 mg PO HS 06/03/18 [History] Allergy/AdvReac Type Severity Reaction Status Date / Time No Known Allergies Allergy Verified 06/03/18 14:12 - Meds/Allergy Pre-op Review Medications Reviewed: Yes Allergies Reviewed: Yes Beta Blockers on Current Med List: No Anesthesia Results - Labs 06/04/18 06:07 06/04/18 06:07 - Imaging EKG: report reviewed (SINUS RHYTHM WITH MARKED SINUS ARRHYTHMIA NONSPECIFIC T- WAVE ABNORMALITY) Additional studies: 06/04/2018 Impressions: LVEF 60%. Normal LV chamber size, wall thickness and function. Mild left ventricular diastolic dysfunction. Normal right ventricular structure and function. No evidence of pulmonary hypertension. No significant valvular dysfunction. Anesthesia Exam Vital Signs/O2 Sat/Glucose, Most Recent Temp Pulse Resp BP Pulse Ox 98.2 F 89 16 132/80 95 06/04/18 11:37 06/04/18 11:37 06/04/18 11:37 06/04/18 11:37 06/04/18 11:37 Blood Glucose* 89 Weight: 74 kg NPO (# of Hours): > 8 hr - HEENT Pupil (Motor): Pupils equal Mallampati: II Teeth: Poor dentition - HEALTH DATA ADMINISTRATOR LOC: Oriented HEALTH DATA ADMINISTRATOR Motor: Normal RUE, Normal LUE, Normal RLE, Normal LLE, Normal Face HEALTH DATA ADMINISTRATOR Sensory: Normal: RUE, LUE, RLE, LLE, Face - Cardiac Rhythm: Regular Murmur: None - Pulmonary Breath Sounds: bilateral Clear Respiratory Effort: Symmetrical Anesthesia Assess/Plan ASA Score: 2 Level of consciousness: Cooperative, Oriented Anesthetic Plan: General, Regional Nerve Block Regional Nerve Block Plan: Fascial Iliacus Reason for No Neuroaxial/Regional Block: Other (patient with spinal cord sti mulator) Monitoring Plan: Standard Monitors Recovery Plan: PACU
[2018-06-04] MEDS ORDERED: *HR* FentaNYL (PF) 100 MCG/2 ML VIAL ONE (13:46)
[2018-06-04] MEDS ORDERED: *HR* Midazolam HCl 2 MG/2 ML VIAL ONE (13:46)
[2018-06-04] MEDS ORDERED: ROPIVACAINE HCL/PF 0.5% 30 ML VIAL ONE (13:46)
[2018-06-04] MEDS ORDERED: Acetaminophen IV 1,000 MG/100 ML INFUS..BTL ONE (13:51)
[2018-06-04] MEDS ORDERED: Lidocaine -MPF 2% 2 ML VIAL ONE (13:56)
[2018-06-04] MEDS ORDERED: *HR* Propofol 200 MG/20 ML VIAL IVP ONE (13:56)
[2018-06-04] MEDS ORDERED: Ondansetron 4 MG/2 ML VIAL ONE (13:58)
[2018-06-04] MEDS ORDERED: Dexamethasone 4 MG/ML VIAL ONE (13:58)
[2018-06-04] MEDS ORDERED: *HR* Succinylcholine 200 MG/10 ML VIAL IVP ONE (13:59)
[2018-06-04] MEDS ORDERED: *HR* Promethazine 25 MG/ML VIAL IVP PRN (14:02)
[2018-06-04] MEDS ORDERED: *HR* OxyCODONE Immed Rel 5 MG TABLET PO PRN ×2 (14:02→17:01)
[2018-06-04] MEDS ORDERED: *HR* Labetalol 20 MG/4 ML SYRINGE IVP PRN (14:02)
[2018-06-04] MEDS ORDERED: *HR* HYDROmorphone (PF) 1 MG/ML SYRINGE IVP PRN (14:02)
--- NOTE | 2018-06-04 14:12 | Anesthesia Procedures ---
Date of Encounter: 06/04/18 Time of Encounter: 14:03 Procedures: Anesthesia - Nerve Block Procedure Date: 06/04/18 Time: 14:03 Allergies/Adv Reactions: NKDA Surgical Procedure: R Robotic Total Hip Checklist: Correct Patient Identifier, Correct procedure, History checked Correct side: Right Blood Thinner: No Monitor Applied: EKG, BP, Pulse Oximetry Supplemental Oxygen via Nasal Cannula (L/min): 2 Sedation: Versed (mg): 2 Sedation: Fentanyl (mcg): 100 Indication: Post Op Analgesia Pre-op Neuro Deficits: No Block Type: Other (Fascia [place]) Catheter placed: No Sterile Technique: Yes Ultrasound used: Yes Anatomy identified: Yes Visual spread of Local: Yes Neuro Stimulation: No Blood on Needle Aspiration: No Smooth Injection of Local: Yes Pain with Injection of Local: No Prep: Chlorhexadine Needle: 21 x 100 mm Stimuplex Local: Ropivacaine (60mL of 0.25% Ropivacaine with 8mg Decadron ) Number of Attempts: 1 Complications: None/effective block Vitals: Vital Signs/O2 Sat/Glucose, Most Recent Temp Pulse Resp BP Pulse Ox 98.2 F 91 16 146/77 92 06/04/18 11:37 06/04/18 14:06 06/04/18 14:06 06/04/18 14:06 06/04/18 14:06 Blood Glucose* 89
[2018-06-04] MEDS ORDERED: Ethanol\\Acetic Acid\\Na Ace\\Ben 1,000 ML IRRIG.SOLN IR ONE (14:47)
[2018-06-04] MEDS ORDERED: *HR* PHENYLEPHRINE 1,000 MCG/10 ML SYRINGE IVP ONE (15:31)
[2018-06-04] MEDS ORDERED: *HR* Morphine 10 MG/ML VIAL ONE (15:42)
--- NOTE | 2018-06-04 16:06 | Orthopedic Operative Note ---
Date of procedure: 06/04/18 Pre-op diagnosis: Displaced right femoral neck fracture Post-op diagnosis: same Procedure: Procedure: Right Total Hip Replacment robotic-assisted Estimated blood loss: 200 cc Hardware: Metal and polyethylene replacement. Silva DM Cup: 52 cup Femoral size 7 stem Head: 4 head with Cynthia Procedural Notes: Displaced right femoral neck fracture Operative procedure: The patient was brought to the operating room and placed on the operating room table. After general anesthesia was administered the patient was placed in the lateral decubitus position with the operative leg up. All pressure points were padded appropriately and the head was stabilized in the neutral position. The operative extremity was prepped and draped in the sterile surgical fashion patient received IV antibiotic prior to skin incision. 3 Steinmann pins were placed in the iliac crest 3 cm proximal to the anterior superior iliac spine this was for the robotic-assisted sensor. This was done through a small 2 cm incision. A standard posterior approach is made to the operative hip, the incision was made through the skin and subcutaneous tissue hemostasis was obtained with Bovie cautery. Using careful sharp dissection the fascia was identified and incised exposing the external rotators. The greater trochanter was marked, and length was measured at this time utilizing robotic assistance. The external rotators were released off the greater trochanter and tagged with #2 FiberWire suture. The capsule was T'd open and the hip was brought into internal rotation. The femoral head was removed, the femoral neck cut was made at the appropriate level proximal to the lesser trochanter. An anterior capsulotomy was performed for the anterior retractor. Soft tissues removed from the acetabulum. The acetabulum reference point was confirmed. The acetabulum was then mapped with robotic assistance. Based on the preoperative plan the acetabulum was reamed in one step with a 51 reamer. The 52 acetabulum was impacted with robotic assistance and 38 degrees of abduction and 20 degrees of anteversion. The hip was brought back in to internal rotation and prepared with the press box custodian followed by the canal finder followed by the reaming process to a size 7/8 broaching process in 20 degrees anteversion. It was broached up to the appropriate size 7 Trial reduction revealed leg lengths close to normal. The femoral implant was impacted in place in 20 degrees of anteversion. Trial reduction found the hip to be stable with 4 head and Cynthia. The trials were removed and the real implants were impacted in place. The hip was reduced, patient had robotic confirmed leg length of 5 mm shorter than the contralateral side. The hip had excellent stability with forward flexion to 90 degrees adduction of 30 degrees and internal rotation of 60 degrees. The hip had no shuck. The hip sat with an antibacterial solution. It was irrigated out with 2 L of pulse irrigation. The Steinmann pins were removed. The deep tissue was irrigated and closed deep with #1 PDS suture superficially with 0 PDS suture and skin was closed with Dermabond and zip tie. The patient was placed in a sterile dressing and abduction pillow. The patient was extubated and transferred to the recovery room in stable condition. Anesthesia: GETA Surgeon: Emery Christianson Was there an assistant corporate controller present: No Estimated blood loss (cc): 200 Condition: stable Disposition: PACU
--- NOTE | 2018-06-04 16:40 | Anesthesia Evaluation Post Op ---
Date of Encounter: 06/04/18 Time of Encounter: 16:39 - Vital Signs Vital Signs: Vital Signs/O2 Sat, Most Current Temp Pulse Resp BP Pulse Ox 98.8 F 101 18 123/66 94 06/04/18 16:12 06/04/18 16:32 06/04/18 16:32 06/04/18 16:32 06/04/18 16:32 - Lungs Lungs: Clear Ascult./Percussion - Airway Airway: Non-obstructed - Cardiovascular Regular Rate - Mental Status Mental Status: Alert & Oriented, Answers Appropriately - Pain Pain Scale: 0 Pain Scale used: Numeric (1 - 10) - Nausea Vomiting Nausea Vomiting: Not Present - Hydration Hydration: Ice chips, Rahman catheter - Discharge PostOp Status: Transfer Patient to floor
[2018-06-04 16:41] LABS: Hematocrit 39.1 % (35.3-44.9); Hemoglobin 12.7 g/dL (11.5-15.4)
[2018-06-04] MEDS ORDERED: Naloxone 0.4 MG/ML INJ IVP PRN (17:01)
[2018-06-04] MEDS ORDERED: *HR* OxyCODONE/APAP 5/325 TABLET PO PRN (17:01)
[2018-06-04] MEDS ORDERED: Sennosides 8.6 MG TABLET PO PRN (17:01)
[2018-06-04] MEDS ORDERED: Temazepam 15 MG CAPSULE PO PRN (17:01)
[2018-06-04] MEDS ORDERED: MOM Conc 10 ML UD.LIQ PO PRN (17:01)
[2018-06-04] MEDS ORDERED: Ondansetron 4 MG/2 ML VIAL IVP PRN (17:01)
[2018-06-04] MEDS ORDERED: Ringers Solution, Lactated 1,000 ML IVC SCH ×2 (17:01)
[2018-06-04] MEDS: Ascorbic Acid 500 MG TABLET PO SCH (17:39)
[2018-06-04] MEDS: clonazePAM 1 MG TABLET PO SCH (21:23)
[2018-06-04] MEDS: OLANZapine 10 MG TAB.RAPDIS PO SCH (21:23)
[2018-06-05] MEDS ORDERED: 0.9 % Sodium Chloride 500 ML IVC ONE (01:07)
[2018-06-05 05:04] LABS: Hematocrit 39.1 % (35.3-44.9); Hemoglobin 12.4 g/dL (11.5-15.4)
[2018-06-05 05:27] LABS: BUN/Creatinine Ratio 16 (6-26); Blood Urea Nitrogen 9 mg/dL (6-20); Calcium 9.3 mg/dL (8.6-10.3); Carbon Dioxide 27 mEq/L (23-29); Chloride 107 mEq/L (98-107); Glucose 149 mg/dL (70-105); Osmolality,Calculated 287 (280-300); Potassium 4.8 mEq/L (3.5-5.1); Sodium 138 mEq/L (136-145); eGFR For Non-African Americans > 60 (> 60)
[2018-06-05] MEDS: Venlafaxine XR (24 HR) 150 MG CAP.ER.24H PO SCH (09:23)
[2018-06-05] MEDS: Multivit/Ca/Min/Fe/FA 1 TAB TABLET PO SCH (09:23)
[2018-06-05] MEDS: Loratadine 10 MG TABLET PO SCH (09:23)
[2018-06-05] MEDS: Ascorbic Acid 500 MG TABLET PO SCH ×2 (09:23→16:35)
[2018-06-05] MEDS: *HR* Heparin 5,000 UNIT/ML VIAL SQ SCH ×2 (09:24→16:35)
[2018-06-05] MEDS: Patient Taking Own Medication 1 EACH PO SCH (09:24)
--- NOTE | 2018-06-05 12:36 | Orthopedics Progress Note ---
Date of Encounter: 06/05/18 Time of Encounter: 12:36 Subjective Interval history: Doing well POD#1 s/p R CONNOR. Pain as expected. No N/T. No N/V. AFVSS GEN: NAD, AAOx3 LUE: Dress c/d/i DNVI to motor and sensory exam Calves nontender s/p R CONNOR PO pain control PT with posterior hip precautions D/c planning Objective Vital signs: Vital Signs Temp Pulse Resp BP Pulse Ox 06/05/18 11:00 97.7 F 76 16 101/68 95 06/05/18 06:27 78 115/68 06/05/18 04:02 75 104/67 06/05/18 03:35 97.5 F L 70 14 89/57 99 06/05/18 02:04 77 92/64 06/05/18 01:20 75 87/57 98 06/04/18 23:38 97.5 F L 75 14 95/59 94 06/04/18 21:34 97 06/04/18 20:00 98.0 F 86 14 106/64 97 06/04/18 18:58 98.2 F 86 16 103/67 95 06/04/18 18:03 98 F 94 16 94/63 06/04/18 17:37 98.2 F 100 18 108/72 94 06/04/18 16:51 98.1 F 101 16 116/71 94 06/04/18 16:42 98.9 F 99 18 120/59 94 06/04/18 16:32 101 18 123/66 94 06/04/18 16:22 105 20 125/73 97 06/04/18 16:12 98.8 F 101 22 131/79 94 06/04/18 14:31 89 16 141/75 94 06/04/18 14:06 91 16 146/77 92 06/04/18 13:57 85 16 143/76 97 Intake and Output 06/04/18 06/05/18 06/05/18 23:59 07:59 15:59 Intake Total 100 / 100 600 / 600 Output Total 1700 / 1700 600 / 600 950 / 950 Balance -1600 / -1600 0 / 0 -950 / -950 Intake: IV Fluids 100 / 100 500 / 500 0.9 % Sodium Chloride 500 ML @ 500 / 500 999 mls/hr IVC .Q31M ONE Rx#: [id number] Ancef 2,000 MG In 0.9 % Sodium 100 / 100 Chloride 100 ML @ 200 mls/hr IVPB Q8H [facility] Rx#:[id number] Oral 100 / 100 Output: Estimated Blood Loss 200 / 200 Catheter 1500 / 1500 600 / 600 950 / 950 Other: Weight 66.5 kg Blood Glucose* 143 Patient Weight 06/05/18 23:59 Weight 66.5 kg - Labs CBC & BMP: 06/05/18 04:54 06/05/18 04:54 Labs: Abnormal lab results RDW 15.8 % (11.5-14.5) H 06/04/18 06:07 Plt Count 127 K/mcL (140-400) L 06/04/18 06:07 Creatinine 0.57 mg/dL (0.60-1.20) L 06/05/18 04:54 Glucose 149 mg/dL (70-105) H 06/05/18 04:54 AST 51 Units/L (13-39) H 06/04/18 06:07 ALT 58 Units/L (7-52) H 06/04/18 06:07 Alkaline Phosphatase 176 Units/L (34-104) H 06/04/18 06:07 Albumin 3.2 g/dL (3.5-5.7) L 06/04/18 06:07 Albumin/Globulin Ratio 0.9 (1.1-2.2) L 06/04/18 06:07 TSH 7.354 mcIU/mL (0.340-5.600) H 06/04/18 06:07 Consult Discharge Plan - Plan Referrals: Paty Haskins [Primary Care Provider] -
--- NOTE | 2018-06-05 13:59 | Internal Med Progress Note ---
Hospitalist Progress Note - Encounter Date of Encounter: 06/05/18 Time of Encounter: 13:56 - Subjective Interval History: Patient seen and examined this morning. No acute overnight events. Right Total Hip Replacment robotic-assisted POD1 Has minimal pain. No chest pain, abdominal pain, fevers, chills, nausea, vomiting, diarrhea. Wants to go home. - Exam Vitals: Temp Pulse Resp BP Pulse Ox 97.7 F 76 16 101/68 95 06/05/18 11:00 06/05/18 11:00 06/05/18 11:00 06/05/18 11:06/05/18 11:00 Exam: Constitutional: Vitals as noted. Conversant. No Apparent Distress. Respiratory : Clear to auscultation bilaterally. No accessory muscle use, rales, rhonchi or wheezes Cardiovascular : RRR, +S1, +S2. no murmur, gallop, rubs. No chest wall tenderness GI/Abdominal : Soft, Non-tender, Non-distended, normal bowel sounds, soft, no peritoneal signs. no orgenomegaly or mass appreciated. no hernia. Musculoskeletal: no deformity noted. no edema or cyanosis. warm extremities, pulses palpable and symmetrical in UE/LE. no calf tenderness. Dressing clear. no bleeding noticed. Neurological: AO X3, CN II-XII grossly intact, grossly normal motor and sensory exam. Skin: As above Pych: Flat affect. - Assessment and Plan (1) Femoral neck fracture Current Visit: Yes Status: Acute (2) Bipolar disorder Current Visit: Yes Status: Chronic (3) Hypothyroidism Current Visit: Yes Status: Acute (4) Fall Current Visit: Yes Status: Acute (5) Preoperative cardiovascular examination Current Visit: Yes Status: Acute - Summary of Assessment and Plan Summary of Assessment and Plan: Femoral neck fracture - Right femur Fracture after mechanical fall - continue current pain regimen - s/p day 1 CONNOR - PT recommended outpatient therapy. However no one available at home to help during weekend. with heart problems and does not feel comfortable. Home health there till thursday even if setup. - Medically Ok to be discharged. - Plan for DC on thursday once outpatient help setup. c/w PT. Elevated transaminase and alkaline phosphatase - Minimally elevated transaminase. - Elevated alkaline phosphatase likely from bone source - Without abdominal pain. - No further intervention needed Bipolar disorder - Continue home medication Hypothyroidism - Elevated TSH which may suggest patient is not well controlled for hypothyroidism. - Continue home levothyroxine - Will need adjustment of her oxygen dosage as outpatient Fall - Appears to have mechanical fall - No cardiac or pulmonary history. - No telemetry events - TTE with EF of 60%. mild DD. NWM. - Time Spent with Patient Total time spent is greater than 50% in coordination of care (as documented) at patient's floor/unit and/or counseling patient: Internal Medicine: Result - Labs CBC & Chem 7: 06/05/18 04:54 06/05/18 04:54 Labs: Short CBC 06/04/18 06/05/18 Range/Units 16:27 04:54 Hgb 12.7 12.4 (11.5-15.4) g/dL Hct 39.1 39.1 (35.3-44.9) % BMP 06/05/18 04:54 Sodium 138 Potassium 4.8 Chloride 107 Carbon Dioxide 27 BUN 9 Creatinine 0.57 L Glucose 149 H Calcium 9.3 - ABG Interpretation ABG results: PT/INR, D-dimer PT 12.1 Seconds (9.4-12.1) 06/03/18 14:06 - Impressions Impressions Hip X-Ray 06/04/18 13:31 IMPRESSION: Interval placement of right hip prosthesis. D/ / Shu Holguin Cha, MD / Shu Holguin Cha, MD Interpreting Provider: Shu Holguin Cha, MD Consult Discharge Plan - Plan Referrals: Paty Haskins [Primary Care Provider] - (1) Femoral neck fracture Qualifiers: Encounter type: initial encounter Fracture type: closed Laterality: right Qualified Code(s): S72.001A - Fracture of unspecified part of neck of right femur, initial encounter for closed fracture (2) Bipolar disorder Qualifiers: Qualified Code(s): F31.9 - Bipolar disorder, unspecified (3) Hypothyroidism Qualifiers: Qualified Code(s): E03.9 - Hypothyroidism, unspecified (4) Fall Qualifiers: Encounter type: initial encounter Qualified Code(s): W19.XXXA - Unspecified fall, initial encounter
[2018-06-05] MEDS: OLANZapine 10 MG TAB.RAPDIS PO SCH (20:33)
[2018-06-05] MEDS: clonazePAM 1 MG TABLET PO SCH (20:33)
[2018-06-06] MEDS: *HR* Heparin 5,000 UNIT/ML VIAL SQ SCH ×3 (00:50→17:59)
[2018-06-06 05:30] LABS: Hematocrit 27.5 % (35.3-44.9); Hemoglobin 8.9 g/dL (11.5-15.4)
[2018-06-06 05:53] LABS: Blood Urea Nitrogen 12 mg/dL (6-20); Carbon Dioxide 31 mEq/L (23-29); Chloride 107 mEq/L (98-107); Potassium 3.5 mEq/L (3.5-5.1); Sodium 140 mEq/L (136-145)
[2018-06-06 05:54] LABS: BUN/Creatinine Ratio 26 (6-26); Calcium 8.4 mg/dL (8.6-10.3); Glucose 101 mg/dL (70-105); Osmolality,Calculated 290 (280-300); eGFR For Non-African Americans > 60 (> 60)
--- NOTE | 2018-06-06 08:31 | Orthopedics Progress Note ---
Date of Encounter: 06/06/18 Time of Encounter: 08:30 Subjective Interval history: Doing well POD#2 s/p R CONNOR. Pain as expected. No N/T. No N/V. AFVSS GEN: NAD, AAOx3 LUE: Dress c/d/i DNVI to motor and sensory exam Calves nontender s/p R CONNOR PO pain control PT with posterior hip precautions D/c planning - likely d/c tomorrow Objective Vital signs: Vital Signs Temp Pulse Resp BP Pulse Ox 06/06/18 06:34 99.4 F 107 16 97/61 93 06/06/18 04:23 98.8 F 109 14 102/63 94 06/06/18 00:30 98.8 F 113 14 102/69 96 06/05/18 20:40 99 06/05/18 20:39 112/70 06/05/18 19:26 98.6 F 102 16 102/61 99 06/05/18 15:42 98 F 93 16 106/67 96 06/05/18 11:00 97.7 F 76 16 101/68 95 Intake and Output 06/05/18 06/06/18 06/06/18 23:59 07:59 15:59 Intake Total 240 / 240 0 / 0 Output Total 350 / 350 0 / 0 Balance -110 / -110 0 / 0 Intake: Oral 240 / 240 0 / 0 Output: Urine 350 / 350 0 / 0 Other: Meal Dinner Percent of Meal Consumed 100% # Voids 1 1 # Bowel Movements 1 1 Weight 66.68 kg Patient Weight 06/06/18 23:59 Weight 66.68 kg - Labs CBC & BMP: 06/06/18 04:53 06/06/18 04:53 Labs: Abnormal lab results Hgb 8.9 g/dL (11.5-15.4) L D 06/06/18 04:53 Hct 27.5 % (35.3-44.9) L 06/06/18 04:53 RDW 15.8 % (11.5-14.5) H 06/04/18 06:07 Plt Count 127 K/mcL (140-400) L 06/04/18 06:07 Carbon Dioxide 31 mEq/L (23-29) H 06/06/18 04:53 Creatinine 0.46 mg/dL (0.60-1.20) L 06/06/18 04:53 POC Glucose 143 mg/dL (70-99) H 06/05/18 00:59 Calcium 8.4 mg/dL (8.6-10.3) L 06/06/18 04:53 AST 51 Units/L (13-39) H 06/04/18 06:07 ALT 58 Units/L (7-52) H 06/04/18 06:07 Alkaline Phosphatase 176 Units/L (34-104) H 06/04/18 06:07 Albumin 3.2 g/dL (3.5-5.7) L 06/04/18 06:07 Albumin/Globulin Ratio 0.9 (1.1-2.2) L 06/04/18 06:07 TSH 7.354 mcIU/mL (0.340-5.600) H 06/04/18 06:07 Consult Discharge Plan - Plan Referrals: Paty Haskins [Primary Care Provider] -
[2018-06-06] MEDS: Venlafaxine XR (24 HR) 150 MG CAP.ER.24H PO SCH (10:29)
[2018-06-06] MEDS: Patient Taking Own Medication 1 EACH PO SCH (10:30)
[2018-06-06] MEDS: Loratadine 10 MG TABLET PO SCH (10:30)
[2018-06-06] MEDS: Ascorbic Acid 500 MG TABLET PO SCH ×2 (10:30→17:59)
[2018-06-06] MEDS: Multivit/Ca/Min/Fe/FA 1 TAB TABLET PO SCH (10:30)
--- NOTE | 2018-06-06 10:34 | Internal Med Progress Note ---
Hospitalist Progress Note - Encounter Date of Encounter: 06/06/18 Time of Encounter: 10:32 - Subjective Interval History: Patient seen and examined this morning. No acute overnight events. Right Total Hip Replacment robotic-assisted POD2. pain is controlled. No blood stool or vomiting. Had bowel movement yesterday. No fever or chills - Exam Vitals: Temp Pulse Resp BP Pulse Ox 99.4 F 107 16 97/61 93 06/06/18 06:34 06/06/18 06:34 06/06/18 06:34 06/06/18 06:34 06/06/18 06:34 Exam: Constitutional: Vitals as noted. Conversant. No Apparent Distress. Respiratory : Clear to auscultation bilaterally. No accessory muscle use, rales, rhonchi or wheezes Cardiovascular : RRR, +S1, +S2. no murmur, gallop, rubs. No chest wall tenderness GI/Abdominal : Soft, Non-tender, Non-distended, normal bowel sounds, soft, no peritoneal signs. Musculoskeletal: no deformity noted. no edema or cyanosis. warm extremities, pulses palpable and symmetrical in UE/LE. no calf tenderness. Dressing clear. no bleeding noticed. Neurological: AO X3, CN II-XII grossly intact, grossly normal motor and sensory exam. Pych: Flat affect. - Assessment and Plan (1) Femoral neck fracture Current Visit: Yes Status: Acute (2) Bipolar disorder Current Visit: Yes Status: Chronic (3) Hypothyroidism Current Visit: Yes Status: Acute (4) Fall Current Visit: Yes Status: Acute (5) Preoperative cardiovascular examination Current Visit: Yes Status: Acute - Summary of Assessment and Plan Summary of Assessment and Plan: Femoral neck fracture - Right femur Fracture after mechanical fall - continue current pain regimen - s/p day 2 CONNOR robot assisted - PT recommended outpatient therapy. However no one available at home to help during weekend. with heart problems and does not feel comfortable. Home health there till thursday even if setup. - Medically Ok to be discharged. - Plan for DC on thursday once outpatient help setup. c/w PT. Anemia - Possibly lab error - No signs of bleeding - likely lab error - Repeat. - No need for transfusion if >8. Elevated transaminase and alkaline phosphatase - Minimally elevated transaminase. - Elevated alkaline phosphatase likely from bone source - Without abdominal pain. - No further intervention needed Bipolar disorder - Continue home medication Hypothyroidism - Elevated TSH which may suggest patient is not well controlled for hypothy roidism. - Continue home levothyroxine - Will need adjustment of her oxygen dosage as outpatient Fall - Appears to have mechanical fall - No cardiac or pulmonary history. - No telemetry events - TTE with EF of 60%. mild DD. NWM. - Time Spent with Patient Total time spent is greater than 50% in coordination of care (as documented) at patient's floor/unit and/or counseling patient: Internal Medicine: Result - Labs CBC & Chem 7: 06/06/18 04:53 06/06/18 04:53 Labs: Short CBC 06/06/18 Range/Units 04:53 Hgb 8.9 L D (11.5-15.4) g/dL Hct 27.5 L (35.3-44.9) % BMP 06/06/18 04:53 Sodium 140 Potassium 3.5 D Chloride 107 Carbon Dioxide 31 H BUN 12 Creatinine 0.46 L Glucose 101 Calcium 8.4 L - ABG Interpretation ABG results: PT/INR, D-dimer PT 12.1 Seconds (9.4-12.1) 06/03/18 14:06 Consult Discharge Plan - Plan Referrals: Paty Haskins [Primary Care Provider] - (1) Femoral neck fracture Qualifiers: Encounter type: initial encounter Fracture type: closed Laterality: right Qualified Code(s): S72.001A - Fracture of unspecified part of neck of right femur, initial encounter for closed fracture (2) Bipolar disorder Qualifiers: Qualified Code(s): F31.9 - Bipolar disorder, unspecified (3) Hypothyroidism Qualifiers: Qualified Code(s): E03.9 - Hypothyroidism, unspecified (4) Fall Qualifiers: Encounter type: initial encounter Qualified Code(s): W19.XXXA - Unspecified fall, initial encounter
[2018-06-06 11:03] LABS: Hematocrit 31.5 % (35.3-44.9); Hemoglobin 10.1 g/dL (11.5-15.4)
[2018-06-06] MEDS: OLANZapine 10 MG TAB.RAPDIS PO SCH (20:21)
[2018-06-06] MEDS: clonazePAM 1 MG TABLET PO SCH (20:22)
[2018-06-07] MEDS: *HR* Heparin 5,000 UNIT/ML VIAL SQ SCH ×2 (00:01→08:16)
[2018-06-07 06:43] VITALS: BP 97/62
--- NOTE | 2018-06-07 06:48 | Orthopedics Progress Note ---
Date of Encounter: 06/07/18 Time of Encounter: 06:48 Subjective Interval history: Patient was seen this morning doing well without complaints. Afebrile vital signs stable. Operative extremity: Neurovascularly intact Dressing clean dry and intact Calves nontender Assessment and plan: Continue with postoperative care Stable for discharge Objective Vital signs: Vital Signs Temp Pulse Resp BP Pulse Ox 06/07/18 06:38 97.9 F 95 16 97/62 99 06/07/18 04:10 98.7 F 98 16 103/70 95 06/06/18 23:53 97.7 F 99 18 114/70 95 06/06/18 19:56 98.7 F 108 14 132/74 97 06/06/18 15:23 99.0 F 110 16 102/68 97 06/06/18 10:51 98.3 F 95 18 113/74 94 06/06/18 10:30 105 107/71 Intake and Output 06/06/18 06/06/18 06/07/18 15:59 23:59 07:59 Intake Total 480 / 480 2710 / 2710 0 / 0 Output Total 0 / 0 0 / 0 Balance 480 / 480 2710 / 2710 0 / 0 Intake: Oral 480 / 480 2710 / 2710 0 / 0 Output: Urine 0 / 0 0 / 0 Other: Meal Lunch Dinner Percent of Meal Consumed 90% 90% # Voids 1 1 1 # Bowel Movements 1 - Labs CBC & BMP: 06/06/18 10:50 06/06/18 04:53 Labs: Abnormal lab results Hgb 10.1 g/dL (11.5-15.4) L 06/06/18 10:50 Hct 31.5 % (35.3-44.9) L 06/06/18 10:50 RDW 15.8 % (11.5-14.5) H 06/04/18 06:07 Plt Count 127 K/mcL (140-400) L 06/04/18 06:07 Carbon Dioxide 31 mEq/L (23-29) H 06/06/18 04:53 Creatinine 0.46 mg/dL (0.60-1.20) L 06/06/18 04:53 POC Glucose 143 mg/dL (70-99) H 06/05/18 00:59 Calcium 8.4 mg/dL (8.6-10.3) L 06/06/18 04:53 AST 51 Units/L (13-39) H 06/04/18 06:07 ALT 58 Units/L (7-52) H 06/04/18 06:07 Alkaline Phosphatase 176 Units/L (34-104) H 06/04/18 06:07 Albumin 3.2 g/dL (3.5-5.7) L 06/04/18 06:07 Albumin/Globulin Ratio 0.9 (1.1-2.2) L 06/04/18 06:07 TSH 7.354 mcIU/mL (0.340-5.600) H 06/04/18 06:07 Consult Discharge Plan - Plan Referrals: Paty Haskins [Primary Care Provider] -
[2018-06-07 06:56] LABS: Eosinophils % 0.8 %; Hematocrit 30.1 % (35.3-44.9); Hemoglobin 9.6 g/dL (11.5-15.4); Immature Granulocytes % 0.4 % (0-4); Lymphocytes # 1.1 K/mcL (0.6-4.6); Lymphocytes % 23.1 %; Mean Corpuscular HGB Conc 31.9 g/dL (31.6-35.5); Mean Corpuscular Hemoglobin 30.3 pg (28.0-33.3); Mean Platelet Volume 10.1 fL (9.4-12.4); Monocytes # 0.5 K/mcL (0.0-1.3); Monocytes % 10.3 %; Neutrophils # 3.1 K/mcL (1.6-8.9); Platelet Count 106 K/mcL (140-400); Red Blood Count 3.17 M/mcL (3.82-4.97); Red Cell Distribution Width 15.7 % (11.5-14.5); Segmented Neutrophils % 65.4 %
[2018-06-07 07:14] LABS: BUN/Creatinine Ratio 23 (6-26); Blood Urea Nitrogen 11 mg/dL (6-20); Calcium 8.7 mg/dL (8.6-10.3); Carbon Dioxide 29 mEq/L (23-29); Chloride 105 mEq/L (98-107); Glucose 105 mg/dL (70-105); Osmolality,Calculated 288 (280-300); Potassium 3.4 mEq/L (3.5-5.1); Sodium 139 mEq/L (136-145); eGFR For Non-African Americans > 60 (> 60)
[2018-06-07] MEDS: Ascorbic Acid 500 MG TABLET PO SCH (08:16)
[2018-06-07] MEDS: Loratadine 10 MG TABLET PO SCH (08:16)
[2018-06-07] MEDS: Venlafaxine XR (24 HR) 150 MG CAP.ER.24H PO SCH (08:17)
[2018-06-07] MEDS: Multivit/Ca/Min/Fe/FA 1 TAB TABLET PO SCH (08:17)
[2018-06-07] MEDS: Patient Taking Own Medication 1 EACH PO SCH (08:17)
--- NOTE | 2018-06-07 11:27 | Discharge Summary ---
- NOTES TO OUTPATIENT PROVIDER Notes to Outpatient Provider: Monitor patient's hemoglobin in next 5-7 days. Discharged on aspirin for DVT prophylaxis for 10 days. Her TSH is elevated. She was continued on home thyroxine. We will need dose adjustment if not recently increased dosage. Orders not resulted at time of discharge: Pending orders 06/04/18 13:55 US anesthesia pain block [US] Routine 06/04/18 15:56 Surgical Pathology [PTH] Routine 06/06/18 14:52 EKG [ECG 12 lead ECG] [ECG] Routine Date of Encounter: 06/07/18 Time of Encounter: 11:27 - Discharge Diagnosis (1) Femoral neck fracture Priority: Primary Status: Acute Qualifiers: Encounter type: initial encounter Fracture type: closed Laterality: right Qualified Code(s): S72.001A - Fracture of unspecified part of neck of right femur, initial encounter for closed fracture (2) Bipolar disorder Priority: Secondary Status: Chronic Qualifiers: Qualified Code(s): F31.9 - Bipolar disorder, unspecified (3) Hypothyroidism Priority: Secondary Status: Acute Qualifiers: Qualified Code(s): E03.9 - Hypothyroidism, unspecified (4) Fall Priority: Primary Status: Acute Qualifiers: Encounter type: initial encounter Qualified Code(s): W19.XXXA - Unspecified fall, initial encounter (5) Preoperative cardiovascular examination Priority: Primary Status: Acute Hospital course: Ms. Acosta is a 57 year old female with past medical history of bipolar disorder, hypothyroidism, obesity status post bypass surgery came in after a mechanical fall and was found to have right femur fracture. Patient underwent right total hip replacement on 06/04/18. The patient did not have any postoperative complication except anemia likely related to blood loss. Surgical site did not show any signs of bleeding. Patient is stable to be discharged home with home health. Patient will be discharged on aspirin for DVT prophylaxis per orthopedics. Discharge discussed with: patient, nurse, law firm consultant - Time Spent with Patient Total time spent providing and/or coordinating discharge services: Greater than 30 minutes (37) - Discharge Medications Prescriptions: Aspirin Enteric Coated [Aspirin EC] 325 mg PO BID 10 Days #20 tablet. Famotidine [Heartburn Prevention] 20 mg PO DAILY 10 Days #10 tablet Ferrous Sulfate 325 mg PO BIDWM 30 Days #60 tablet Home Medications: Haloperidol [Haldol] 2 mg PO QAM 06/03/18 [History] Haloperidol [Haldol] 4 mg PO HS 06/03/18 [History] Levothyroxine [Synthroid] 150 mcg PO DAILY 06/03/18 [History] Loratadine [Allergy Relief] 10 mg PO DAILY 06/03/18 [History] OLANZapine [Zyprexa] 20 mg PO HS 06/03/18 [History] Spironolactone [Aldactone] 12.5 mg PO DAILY 06/03/18 [History] Venlafaxine HCl [Venlafaxine HCl ER] 150 mg PO DAILY 06/03/18 [History] Vortioxetine Hydrobromide [Trintellix] 15 mg PO QAM 06/03/18 [History] clonazePAM [Klonopin] 1.5 mg PO HS 06/03/18 [History] Aspirin Enteric Coated [Aspirin EC] 325 mg PO BID 10 Days #20 tablet. 06/07/18 [Rx] Famotidine [Heartburn Prevention] 20 mg PO DAILY 10 Days #10 tablet 06/07/18 [Rx] Ferrous Sulfate 325 mg PO BIDWM 30 Days #60 tablet 06/07/18 [Rx] Allergies/Adverse Reactions: Allergy/AdvReac Type Severity Reaction Status Date / Time No Known Allergies Allergy Verified 06/03/18 14:12 Date of admission: 06/03/18 17:51 Primary care physician: Mike Haskins Consults: 06/03/18 14:42 Consult to Orthopedic Surgery [CONS] Stat Consulting Provider: [facility] Reason for Consult: right femoral neck fracture Time Notified: 14:43 Call Completed: Yes 06/03/18 16:25 Consult to Commercial Real Estate Attorney [CONS] Routine Reason for SW Consult: POSSIBLE NEED FOR DISCHARGE THERAPY 06/04/18 17:01 Consult to Nurse Navigator [CONS] Routine Comment: ortho navigator Consult to Commercial Real Estate Attorney [CONS] Routine Reason for SW Consult: post op joint replacement RT Post Op Consult [CONS] Routine Discharging clinician: Kaleb Molina - Constitutional Vitals: Temp Pulse Resp BP Pulse Ox 97.9 F 95 16 97/62 99 06/07/18 06:38 06/07/18 06:38 06/07/18 06:38 06/07/18 06:38 06/07/18 06:38 Exam: Constitutional: Vitals as noted. Conversant. No Apparent Distress. Respiratory : Clear to auscultation bilaterally. No accessory muscle use, rales, rhonchi or wheezes Cardiovascular : RRR, +S1, +S2. no murmur, gallop, rubs. No chest wall tenderness GI/Abdominal : Soft, Non-tender, Non-distended, normal bowel sounds, soft, no peritoneal signs. Musculoskeletal: no deformity noted. no edema or cyanosis. warm extremities, pulses palpable and symmetrical in UE/LE. no calf tenderness. Dressing clear. no bleeding noticed. Neurological: AO X3, CN II-XII grossly intact, grossly normal motor and sensory exam. Pych: Flat affect. - Patient Status Disposition: Home Health Service Condition: Fair - Discharge Instructions Follow Up With: Paty Haskins [Primary Care Provider] - - Diet and Activity Activity: as per physical therapy
--- NOTE | 2018-06-07 11:43 | Physician Discharge Referral ---
Home Health/Hosp Referral Info Transfer to: Home Health - Diagnosis (1) Femoral neck fracture Status: Acute (2) Bipolar disorder Status: Chronic (3) Hypothyroidism Status: Acute (4) Fall Status: Acute (5) Preoperative cardiovascular examination Status: Acute - Respiratory Orders Smoking Cessation: Smoking cessation has been advised. For more information, call the [place] Tobacco Quit Line at 9-903-SUXZ-NOW. - Services Needed Following services are medically necessary services: Physical Therapy - Transfer Medications Prescriptions: Aspirin Enteric Coated [Aspirin EC] 325 mg PO BID 10 Days #20 tablet. Famotidine [Heartburn Prevention] 20 mg PO DAILY 10 Days #10 tablet Ferrous Sulfate 325 mg PO BIDWM 30 Days #60 tablet Home Medications: Haloperidol [Haldol] 2 mg PO QAM 06/03/18 [History] Haloperidol [Haldol] 4 mg PO HS 06/03/18 [History] Levothyroxine [Synthroid] 150 mcg PO DAILY 06/03/18 [History] Loratadine [Allergy Relief] 10 mg PO DAILY 06/03/18 [History] OLANZapine [Zyprexa] 20 mg PO HS 06/03/18 [History] Spironolactone [Aldactone] 12.5 mg PO DAILY 06/03/18 [History] Venlafaxine HCl [Venlafaxine HCl ER] 150 mg PO DAILY 06/03/18 [History] Vortioxetine Hydrobromide [Trintellix] 15 mg PO QAM 06/03/18 [History] clonazePAM [Klonopin] 1.5 mg PO HS 06/03/18 [History] Aspirin Enteric Coated [Aspirin EC] 325 mg PO BID 10 Days #20 tablet. 06/07/18 [Rx] Famotidine [Heartburn Prevention] 20 mg PO DAILY 10 Days #10 tablet 06/07/18 [Rx] Ferrous Sulfate 325 mg PO BIDWM 30 Days #60 tablet 06/07/18 [Rx] Allergies/Adverse Reactions: Allergy/AdvReac Type Severity Reaction Status Date / Time No Known Allergies Allergy Verified 06/03/18 14:12 Certification: Further, I certify that my clinical findings support that this patient is homebound (i.e. absences from home require considerable and taxing effort and are for medical reasons or rastafarian services or infrequently or short duration when for other reasons) because: Homebound Reason: Patient requires assistance of a person or device to safely leave home Attestation: My signature below is to certify that this patient is under my care and that I, or nurse practitioner, or a physician's assistant inventory manager working with me, has a [id number] encounter with this patient.
--- NOTE | 2018-06-08 08:31 | Electrocardiograph Report ---
[address] [address] Test Date: 2018-06-06 Pat Name: Leticia Acosta Department: [id number] Room: [facility] Gender: F Director Of Diversity And Inclusion: : 1960 Requested By: Kaleb Molina Order Number: [id number] Reading MD: Hai Gonzalez Measurements Intervals Charlo Rate: 112 P: 45 AL: 138 QRS: 22 QRSD: 88 T: 4 QT: 304 QTc: 371 Interpretive Statements SINUS TACHYCARDIA NONSPECIFIC T-WAVE ABNORMALITY Electronically Signed On 06-08-2018 8:29:47 EST by Hai Gonzalez
== END 2018-06-07 15:46 | disposition home health service (06) | DRG 301 ==
LOC: EMEROOARM 12:54 → 3NENU 12:54 → SUATTDRO 15:02 → 3NENU 15:26
PROVIDERS: ADMIT Internal Medicine Cardiovascular Disease; ATTEND Internal Medicine